=== PATIENT | female | born 1995 | race Caucasian/White ===

== ENCOUNTER 2016-12-10 22:27 | Outpatient (CLI) | payer OTHER ==
[~2016-12-10 22:27] MED LIST: DIFLUCAN150 MG PO; ENDOCET 5-3251 EACH PO; FLAGYL500 MG PO; IBUPROFEN800 MG PO; LAXATIVE5 M1 PO; MOBIC7.5 MG PO; Motrin PO; NAPROSYN500 MG PO; NAPROXEN500 MG PO; PERCOCET 5/31 TABLET PO; PRENATAL TABLE1 EAC3 PO; TYLENOL REGULA325 MG PO; ZOFRAN4 MG PO
[2016-12-10 22:38] VITALS: BP 139/83
[2016-12-10 23:17] VITALS: BP 120/64
[2016-12-10 23:21] LABS: EOSINOPHIL (%) 0.8 % (0-5); EOSINOPHIL COUNT 0.1 K/uL (0-0.3); HEMATOCRIT 34.2 % (36.0-46.0); IMMATURE GRANULOCYTE (%) 0.5 % (0.0-0.7); IMMATURE GRANULOCYTE COUNT 0.1 K/uL; INSTRUMENT ABS NEUTROPHIL CT 7.2 K/uL; LYMPHOCYTE COUNT 2.7 K/uL (1.0-2.8); MCH 27.7 PG (29.0-34.0); MCHC 33.3 G/DL (30.0-36.0); MCV 83.2 FL (83-99); MEAN PLAT.VOLUME 9.9 uM^3 (9.5-12.4); MONOCYTE (%) 5.4 % (3-12); MONOCYTE COUNT 0.6 K/uL (0-0.8); NEUTROPHIL (%) 67.9 % (45-76); NEUTROPHIL COUNT 7.2 K/uL (1.8-6.4); PLATELET COUNT 215 K/uL (156-360); RBC DIS.WIDTH-CV 15.1 % (11.8-14.6); RBC DIS.WIDTH-SD 45.6 % (39-53); RED BLOOD COUNT 4.11 M/uL (3.80-5.20); WHITE BLOOD COUNT 10.5 K/uL (4.1-10.2)
[2016-12-10 23:36] LABS: CHLORIDE 106 mEq/L (99-109); POTASSIUM 3.4 mEq/L (3.7-5.4); SODIUM 135 mEq/L (136-147)
[2016-12-10 23:38] LABS: GLUCOSE 91 mg/dL (70-99)
[2016-12-10 23:39] LABS: ANION GAP 6 MEQ/L (2-14)
[2016-12-10 23:40] LABS: TOTAL BILIRUBIN 0.7 mg/dL (0.0-1.0)
[2016-12-10 23:41] LABS: ALKALINE PHOSPHATASE 49 IU/L (3-129)
[2016-12-10 23:42] LABS: GFR ESTIMATE (CALCULATED) > 59 mL/min/
[2016-12-10 23:43] LABS: UREA NITROGEN (BUN) 7 mg/dL (9-23)
[2016-12-10 23:47] VITALS: BP 96/52
[2016-12-11 01:40] LABS: AMPHETAMINES QUANT VALUE 0 NG/ML; BARBITUATES QUANT VALUE 0 NG/ML; BENZODIAZEPINES QUANT VALUE 0 NG/ML; BENZODIAZEPINES, URINE SCREEN Negative (200 ng/mL); OPIATES QUANTITATIVE VALUE 0 NG/ML; PHENCYCLIDINE QUANT VALUE 0 NG/ML
== END 2016-12-11 03:35 | disposition home or self-care (01) ==
LOC: LDRP-OP 22:27 → 2WEST 22:28 → LDRP-OP 04-20 19:10
PROVIDERS: Advanced Practice Midwife
DX: Z03.79 Encounter for other suspected maternal and fetal conditions ruled out (principal); W18.39XA Other fall on same level, initial encounter; Y93.89 Activity, other specified; Y92.096 Garden or yard of other non-institutional residence as the place of occurrence of the external cause; Z3A.25 25 weeks gestation of pregnancy
CPT/HCPCS: 59025; 76805; 80053; 80306 90; 85025; G0378

== ENCOUNTER 2017-03-14 08:40 | Inpatient (IN) | payer OTHER ==
[2017-03-14] VITALS (7 sets, daily range): BP systolic 119–145; BP diastolic 68–87
[~2017-03-14] VITALS: Ht 175.3 cm; Wt 96.4 kg
[2017-03-14 09:43] LABS: EOSINOPHIL COUNT 0.1 K/uL (0-0.3); HEMATOCRIT 36.8 % (36.0-46.0); IMMATURE GRANULOCYTE (%) 0.6 % (0.0-0.7); IMMATURE GRANULOCYTE COUNT 0.1 K/uL; INSTRUMENT ABS NEUTROPHIL CT 9.1 K/uL; MCH 25.9 PG (29.0-34.0); MCHC 32.3 G/DL (30.0-36.0); MEAN PLAT.VOLUME 10.7 uM^3 (9.5-12.4); MONOCYTE (%) 7.2 % (3-12); MONOCYTE COUNT 0.9 K/uL (0-0.8); NEUTROPHIL (%) 74.4 % (45-76); NEUTROPHIL COUNT 9.1 K/uL (1.8-6.4); PLATELET COUNT 226 K/uL (156-360); RBC DIS.WIDTH-CV 13.4 % (11.8-14.6); RBC DIS.WIDTH-SD 38.3 % (39-53); WHITE BLOOD COUNT 12.2 K/uL (4.1-10.2)
[2017-03-14 10:36] LABS: METH RESISTANT S AUREUS PCR NEGATIVE (NEGATIVE)
[2017-03-14 10:37] LABS: PROBE CHECK PASS; SPECIMEN PROCESSING CONTROL PASS
[2017-03-14 10:45] LABS: AMPHETAMINES QUANT VALUE 0 NG/ML; BARBITUATES QUANT VALUE 0 NG/ML; BENZODIAZEPINES QUANT VALUE 0 NG/ML; BENZODIAZEPINES, URINE SCREEN Negative (200 ng/mL); OPIATES QUANTITATIVE VALUE 0 NG/ML; PHENCYCLIDINE QUANT VALUE 0 NG/ML
[2017-03-15] VITALS (7 sets, daily range): BP systolic 110–128; BP diastolic 60–67
[2017-03-15 06:42] LABS: EOSINOPHIL COUNT 0.2 K/uL (0-0.3); HEMATOCRIT 32.4 % (36.0-46.0); IMMATURE GRANULOCYTE (%) 0.5 % (0.0-0.7); IMMATURE GRANULOCYTE COUNT 0.1 K/uL; INSTRUMENT ABS NEUTROPHIL CT 10.4 K/uL; LYMPHOCYTE COUNT 2.6 K/uL (1.0-2.8); MCH 27.2 PG (29.0-34.0); MCHC 33.6 G/DL (30.0-36.0); MCV 80.8 FL (83-99); MONOCYTE (%) 7.6 % (3-12); MONOCYTE COUNT 1.1 K/uL (0-0.8); NEUTROPHIL (%) 72.4 % (45-76); NEUTROPHIL COUNT 10.4 K/uL (1.8-6.4); PLATELET COUNT 193 K/uL (156-360); RBC DIS.WIDTH-CV 13.3 % (11.8-14.6); RED BLOOD COUNT 4.01 M/uL (3.80-5.20); WHITE BLOOD COUNT 14.4 K/uL (4.1-10.2)
[2017-03-16 02:24] VITALS: BP 112/67
[2017-03-16 08:02] VITALS: BP 121/63
[2017-03-16] MEDS ORDERED: ENDOCET 5-3251 EACH PO (10:26)
[2017-03-16] MEDS ORDERED: IBUPROFEN800 MG PO (10:26)
[2017-03-16 11:00] VITALS: BP 118/72
[2017-03-16 14:50] VITALS: BP 130/81
== END 2017-03-16 16:04 | disposition home or self-care (01) | DRG 766 ==
LOC: 2WEST 08:40 → 2SOUTH 10:59 → 2WEST 03-16 16:04
PROVIDERS: Obstetrics & Gynecology
PROC: 10D00Z1 Extraction of Products of Conception, Low, Open Approach (ICD-10-PCS; principal; 2017-03-14)
DX: O34.211 Maternal care for low transverse scar from previous cesarean delivery (principal); O99.214 Obesity complicating childbirth; E66.9 Obesity, unspecified; F17.200 Nicotine dependence, unspecified, uncomplicated; O99.333 Smoking (tobacco) complicating pregnancy, third trimester; Z3A.39 39 weeks gestation of pregnancy; Z37.0 Single live birth; Z68.31 Body mass index [BMI] 31.0-31.9, adult; Z86.14 Personal history of Methicillin resistant Staphylococcus aureus infection
CPT/HCPCS: 80306 90; 85025; 86900; 86901; 87641; J0690; J1100; J2274; J2405; J7120

== ENCOUNTER 2017-05-20 12:47 | Emergency (ER) | payer OTHER ==
[~2017-05-20] VITALS: Ht 175.3 cm; Wt 96.8 kg
[2017-05-20 16:39] LABS: HEMATOCRIT 32.8 % (36.0-46.0); MCHC 32.3 G/DL (30.0-36.0); MCV 80.4 FL (83-99); MEAN PLAT.VOLUME 9.8 uM^3 (9.5-12.4); PLATELET COUNT 243 K/uL (156-360); RBC DIS.WIDTH-CV 13.9 % (11.8-14.6); RBC DIS.WIDTH-SD 40.7 % (39-53); RED BLOOD COUNT 4.08 M/uL (3.80-5.20); WHITE BLOOD COUNT 12.1 K/uL (4.1-10.2)
[2017-05-20] MEDS ORDERED: XULANE PATCH1 EACH TD (16:48)
[2017-05-20 16:50] LABS: CHLORIDE 107 mEq/L (99-109); POTASSIUM 3.7 mEq/L (3.7-5.4); SODIUM 138 mEq/L (136-147)
[2017-05-20 16:52] LABS: GLUCOSE 81 mg/dL (70-99)
[2017-05-20 16:53] LABS: ANION GAP 10 MEQ/L (2-14)
[2017-05-20 16:56] LABS: GFR ESTIMATE (CALCULATED) > 59 mL/min/
[2017-05-20 16:57] LABS: UREA NITROGEN (BUN) 13 mg/dL (9-23)
[2017-05-20 17:08] LABS: QUANTITATIVE HCG < 4.0 MIU/ML
[2017-05-20] MEDS ORDERED: NORCO 5/3251 TABLET PO (21:13)
[2017-05-20] MEDS ORDERED: CLINDAMYCIN HC150 MG PO (21:13)
[2017-05-20] MEDS ORDERED: LIDOCAINE20 MG/1 M5 PO (21:13)
[2017-05-20 21:31] VITALS: BP 150/89
== END 2017-05-20 21:33 | disposition home or self-care (01) ==
LOC: EME 12:47
PROVIDERS: Physician Assistant
DX: J36 Peritonsillar abscess (principal); H61.23 Impacted cerumen, bilateral; E04.1 Nontoxic single thyroid nodule; F17.200 Nicotine dependence, unspecified, uncomplicated
CPT/HCPCS: 70491; 80048; 84702; 85027; 87651 90; 99281; 99285; J1100; J3010; J7030

== ENCOUNTER 2017-05-22 02:13 | Emergency (ER) | payer OTHER ==
[~2017-05-22] VITALS: Ht 175.3 cm; Wt 95.3 kg
[~2017-05-22 02:13] MED LIST changes: +CLINDAMYCIN HC150 MG PO; +LIDOCAINE20 MG/1 M5 PO; +NORCO 5/3251 TABLET PO; +XULANE PATCH1 EACH TD
[2017-05-22 03:22] LABS: CHLORIDE 106 mEq/L (99-109); POTASSIUM 3.1 mEq/L (3.7-5.4); SODIUM 141 mEq/L (136-147)
[2017-05-22 03:23] LABS: GLUCOSE 91 mg/dL (70-99)
[2017-05-22 03:25] LABS: ANION GAP 12 MEQ/L (2-14)
[2017-05-22 03:27] LABS: GFR ESTIMATE (CALCULATED) > 59 mL/min/
[2017-05-22 03:28] LABS: UREA NITROGEN (BUN) 18 mg/dL (9-23)
[2017-05-22 04:02] LABS: EOSINOPHIL (%) 0.2 % (0-5); HEMATOCRIT 31.2 % (36.0-46.0); IMMATURE GRANULOCYTE (%) 0.6 % (0.0-0.7); IMMATURE GRANULOCYTE COUNT 0.1 K/uL; INSTRUMENT ABS NEUTROPHIL CT 9.1 K/uL; LYMPHOCYTE COUNT 2.5 K/uL (1.0-2.8); MCH 26.4 PG (29.0-34.0); MEAN PLAT.VOLUME 10.2 uM^3 (9.5-12.4); MONOCYTE (%) 6.5 % (3-12); MONOCYTE COUNT 0.8 K/uL (0-0.8); NEUTROPHIL (%) 72.6 % (45-76); NEUTROPHIL COUNT 9.1 K/uL (1.8-6.4); PLATELET COUNT 277 K/uL (156-360); RBC DIS.WIDTH-CV 13.9 % (11.8-14.6); WHITE BLOOD COUNT 12.6 K/uL (4.1-10.2)
[2017-05-22 04:17] VITALS: BP 149/95
== END 2017-05-22 04:17 | disposition home or self-care (01) ==
LOC: EME 02:13
PROVIDERS: Emergency Medicine
PROC: 0C9PXZZ Drainage of Tonsils, External Approach (ICD-10-PCS; principal; 2017-05-22)
DX: J36 Peritonsillar abscess (principal); F17.200 Nicotine dependence, unspecified, uncomplicated; F32.9 Major depressive disorder, single episode, unspecified; J45.909 Unspecified asthma, uncomplicated; Z88.0 Allergy status to penicillin
CPT/HCPCS: 80048; 85025; 87070; 87075; 87076; 87185; 87205; 93005; 99281; 99285; J1100; J1885; J7030

== ENCOUNTER 2017-09-14 02:00 | Emergency (ER) | payer OTHER ==
[~2017-09-14] VITALS: Ht 175.3 cm; Wt 93.5 kg
[2017-09-14] MEDS ORDERED: AMOXICILLIN500 MG PO (03:30)
[2017-09-14 05:18] VITALS: BP 116/69
== END 2017-09-14 05:19 | disposition home or self-care (01) ==
LOC: TRA 02:00
DX: S41.111A Laceration without foreign body of right upper arm, initial encounter (principal); S44.91XA Injury of unspecified nerve at shoulder and upper arm level, right arm, initial encounter; M21.331 Wrist drop, right wrist; X99.9XXA Assault by unspecified sharp object, initial encounter; S09.90XA Unspecified injury of head, initial encounter; Y04.2XXA Assault by strike against or bumped into by another person, initial encounter; Z23 Encounter for immunization; Z88.0 Allergy status to penicillin; F17.200 Nicotine dependence, unspecified, uncomplicated
CPT/HCPCS: 99281; 99285